=== PATIENT | male | born 1955 | race Two or more races ===

== ENCOUNTER 2023-08-10 12:19 | Inpatient (IN) | payer MEDICARE, MEDICAID ==
[~2023-08-10] VITALS: Ht 167.6 cm; Wt 83.3 kg
[2023-08-10 12:44] VITALS: PULSE 91; RESP 17; O2SAT 95
[2023-08-10 13:37] LABS: Basophils # (auto) 0.1 10 ^3/uL (0-0.2); Basophils % (auto) 1.3 % (0.0-2.0); Eosinophils # (auto) 0.1 10 ^3/uL (0-0.8); Eosinophils % (auto) 0.9 % (0.0-7.0); Hematocrit 43.7 % (41.0-53.0); Hemoglobin 14.8 g/dL (13.5-17.5); Lymphocytes # (auto) 1.2 10 ^3/uL (0.4-5.4); Lymphocytes % (auto) 19.4 % (10.0-50.0); Mean Corpuscular Hemoglobin 28.1 pg (28.0-32.0); Mean Corpuscular Hgb Conc. 33.9 g/dL (32.0-36.0); Mean Corpuscular Volume 82.9 fL (80.0-100.0); Monocytes # (auto) 0.3 10 ^3/uL (0-1.3); Monocytes % (auto) 4.6 % (0.0-12.0); Neutrophils # (auto) 4.6 10 ^3/uL (1.6-8.6); Neutrophils % (auto) 73.8 % (37.0-80.0); Nucleated Red Blood Cells % 0.1 %; Red Blood Cells 5.27 10^6/uL (4.5-5.90); Red Cell Distribution Width 14.7 % (11.8-14.3); White Blood Cell 6.2 10^3/uL (4.4-10.8)
[2023-08-10 13:52] LABS: Alanine Aminotransferase 18 U/L (7-40); Albumin 4.2 g/dL (3.2-4.8); Alkaline Phosphatase 101 U/L (46-116); Anion Gap 7 (5-15); Aspartate Aminotransferase 13 U/L (13-40); BUN/Creatinine Ratio 18.3 (10.0-20.0); Bilirubin, Total 0.5 mg/dL (0.2-1.0); Blood Urea Nitrogen 13 mg/dL (9-23); Calcium 9.6 mg/dL (8.5-10.1); Carbon Dioxide 28 mmol/L (20-30); Chloride 105 mmol/L (98-107); Glucose 171 mg/dL (74-106); Potassium 4.8 mmol/L (3.5-5.1); Sodium 140 mmol/L (136-145); Total Protein 6.8 g/dL (5.7-8.2)
[2023-08-10 14:01] LABS: CRP High Sensitivity 8.97 mg/dL (<1.0)
[2023-08-10 14:23] LABS: Erythrocyte Sedimentation Rate 72 mm/hr (0-20)
[2023-08-10] MEDS: IBUPROFEN 400 MG TAB PO ONE (15:18)
[2023-08-10] MEDS: VANCOMYCIN 1GM/200ML 200 ML IV ONE (15:52)
[2023-08-10] MEDS: PIPERACILLIN-TAZO 4.5GM 100 ML IV ONE (16:59)
[2023-08-10] MEDS ORDERED: ONDANSETRON HCL 4 MG/2 ML VIAL IV PRN (17:15)
[2023-08-10] MEDS ORDERED: MORPHINE SULFATE INJ 2 MG/ml SYRG IV PRN (17:15)
[2023-08-10] MEDS ORDERED: hydrALAZINE HCL 20 MG/ML VL IV PRN (17:15)
[2023-08-10] MEDS ORDERED: ACETAMINOPHEN 325 MG TAB PO PRN (17:15)
[2023-08-10] MEDS ORDERED: HYDROcodone-ACET 5/325MG TAB PO PRN (17:15)
[2023-08-10] MEDS ORDERED: VANCOMYCIN PER PHARMACY 0 MG IV SCH (17:15)
[2023-08-10 18:23] LABS: Triglycerides 140 mg/dL (< 150)
[2023-08-10 18:24] LABS: LDL Cholesterol 131 mg/dL (< 100)
[2023-08-10 18:25] LABS: Cholesterol 175 mg/dL (< 200); HDL Cholesterol 29 mg/dL (40-59)
[2023-08-10] MEDS: SODIUM CHLORIDE 0.9% 1,000 ML IV SCH (18:34)
[2023-08-10 20:00] VITALS: PULSE 83; RESP 16
[2023-08-10 21:00] VITALS: BP 154/76; PULSE 83; RESP 20; TEMP 97.9; O2SAT 91
[2023-08-10] MEDS: PIPERACILLIN-TAZOB 3.375GM 100 ML IV SCH (21:48)
[2023-08-11] VITALS (8 sets, daily range): BP systolic 115–138; BP diastolic 68–76; PULSE 70–88; RESP 16–20; TEMP 97.4–98.4; O2SAT 96–100
[2023-08-11] MEDS: VANCOMYCIN 1GM/200ML 200 ML IV SCH (03:43)
[2023-08-11 06:30] LABS: Basophils # (auto) 0 10 ^3/uL (0-0.2); Basophils % (auto) 0.7 % (0.0-2.0); Eosinophils # (auto) 0.1 10 ^3/uL (0-0.8); Eosinophils % (auto) 2.3 % (0.0-7.0); Hematocrit 39.6 % (41.0-53.0); Hemoglobin 13.4 g/dL (13.5-17.5); Lymphocytes # (auto) 1.3 10 ^3/uL (0.4-5.4); Lymphocytes % (auto) 25.2 % (10.0-50.0); Mean Corpuscular Hemoglobin 27.9 pg (28.0-32.0); Mean Corpuscular Hgb Conc. 33.9 g/dL (32.0-36.0); Mean Corpuscular Volume 82.4 fL (80.0-100.0); Monocytes # (auto) 0.3 10 ^3/uL (0-1.3); Monocytes % (auto) 5.7 % (0.0-12.0); Neutrophils # (auto) 3.4 10 ^3/uL (1.6-8.6); Neutrophils % (auto) 66.1 % (37.0-80.0); Nucleated Red Blood Cells % 0.1 %; Red Blood Cells 4.81 10^6/uL (4.5-5.90); Red Cell Distribution Width 14.4 % (11.8-14.3); White Blood Cell 5.2 10^3/uL (4.4-10.8)
[2023-08-11 06:38] LABS: Alanine Aminotransferase 16 U/L (7-40); Alkaline Phosphatase 85 U/L (46-116); Anion Gap 6 (5-15); BUN/Creatinine Ratio 14.9 (10.0-20.0); Blood Urea Nitrogen 11 mg/dL (9-23); Calcium 9.4 mg/dL (8.7-10.4); Carbon Dioxide 27 mmol/L (20-30); Chloride 102 mmol/L (98-107); Glucose 221 mg/dL (74-106); Potassium 4.5 mmol/L (3.5-5.1)
[2023-08-11 06:39] LABS: Albumin 3.8 g/dL (3.2-4.8); Aspartate Aminotransferase 11 U/L (13-40); Bilirubin, Total 0.5 mg/dL (0.2-1.0); Total Protein 6.6 g/dL (5.7-8.2)
[2023-08-11 06:58] LABS: Sodium 135 mmol/L (136-145)
[2023-08-11] MEDS ORDERED: DEXTROSE (50%) 50ML SYRG IV PRN (08:45)
[2023-08-11] MEDS: AMPICILLIN & SULBACTAM SODIUM 3 GM in SODIUM CHL 0.9% 100 ML IV SCH (08:45)
[2023-08-11] MEDS: ENOXAPARIN SOD 40 MG/0.4 ML SYRINGE SC SCH (09:39)
[2023-08-11] MEDS: LISINOPRIL 5 MG TAB PO SCH (09:39)
[2023-08-11] MEDS: INSULIN LANTUS (GLARGINE) 1 /0.01ml (100units/ml) SC SCH (10:00)
[2023-08-11] MEDS: InsuLIN REG 1unit/0.01ml Soln (100units/ml) SC SCH (11:12)
[2023-08-11] MEDS: ACCU-CHEK COMFORT CURVE STRIP VI SCH (11:12)
[2023-08-11 14:38] LABS: INR 1.05 (0.9-1.15); Partial Thromboplastin Time 25.9 SEC (24.5-34.5); Prothrombin Time 11.1 sec (9.3-11.8)
[2023-08-11] MEDS: ATORVASTATIN 20 MG TAB PO SCH (21:45)
[2023-08-12 05:00] VITALS: BP 138/85; PULSE 84; RESP 18; TEMP 97.9; O2SAT 97
[2023-08-12 07:14] LABS: Basophils # (auto) 0.1 10 ^3/uL (0-0.2); Basophils % (auto) 0.9 % (0.0-2.0); Eosinophils # (auto) 0.1 10 ^3/uL (0-0.8); Hematocrit 41.5 % (41.0-53.0); Hemoglobin 14.2 g/dL (13.5-17.5); Lymphocytes # (auto) 1.5 10 ^3/uL (0.4-5.4); Lymphocytes % (auto) 25.1 % (10.0-50.0); Mean Corpuscular Hemoglobin 28.4 pg (28.0-32.0); Mean Corpuscular Hgb Conc. 34.4 g/dL (32.0-36.0); Mean Corpuscular Volume 82.8 fL (80.0-100.0); Monocytes # (auto) 0.3 10 ^3/uL (0-1.3); Monocytes % (auto) 5.2 % (0.0-12.0); Neutrophils # (auto) 3.9 10 ^3/uL (1.6-8.6); Neutrophils % (auto) 66.8 % (37.0-80.0); Nucleated Red Blood Cells % 0.2 %; Red Blood Cells 5.01 10^6/uL (4.5-5.90); Red Cell Distribution Width 14.5 % (11.8-14.3); White Blood Cell 5.9 10^3/uL (4.4-10.8)
[2023-08-12 07:20] LABS: Anion Gap 7 (5-15); Carbon Dioxide 26 mmol/L (20-30); Chloride 100 mmol/L (98-107); Potassium 4.4 mmol/L (3.5-5.1); Sodium 133 mmol/L (136-145)
[2023-08-12 07:21] LABS: Calcium 9.6 mg/dL (8.5-10.1)
[2023-08-12 07:26] LABS: BUN/Creatinine Ratio 14.6 (10.0-20.0); Blood Urea Nitrogen 12 mg/dL (9-23); Glucose 269 mg/dL (74-106); Magnesium 1.9 mg/dL (1.6-2.6)
[2023-08-12 08:00] VITALS: PULSE 85; RESP 16; O2SAT 97
[2023-08-12] MEDS: IBUPROFEN 400 MG TAB PO PRN (09:21)
[2023-08-12 20:00] VITALS: O2SAT 96
[2023-08-13 07:07] LABS: RPR Non Reactive (Non Reactive)
[2023-08-13 07:08] LABS: Chloride 103 mmol/L (98-107); Potassium 4.7 mmol/L (3.5-5.1); Sodium 136 mmol/L (136-145)
[2023-08-13 07:09] LABS: Anion Gap 3 (5-15); Carbon Dioxide 30 mmol/L (20-30)
[2023-08-13 07:10] LABS: Calcium 9.8 mg/dL (8.5-10.1)
[2023-08-13 07:14] LABS: Glucose 225 mg/dL (74-106)
[2023-08-13 07:15] LABS: BUN/Creatinine Ratio 18.1 (10.0-20.0); Blood Urea Nitrogen 15 mg/dL (9-23)
[2023-08-13 08:00] VITALS: PULSE 90; RESP 22; O2SAT 97
[2023-08-13 09:00] VITALS: BP 145/86; PULSE 90; RESP 22; TEMP 96.9; O2SAT 97
[2023-08-13 12:34] VITALS: BP 121/71; PULSE 86; RESP 20; TEMP 97.6; O2SAT 97
[2023-08-13] MEDS: ACCU-CHEK COMFORT CURVE STRIP VI SCH (17:00)
[2023-08-13] MEDS ORDERED: DEXTROSE (50%) 50ML SYRG IV PRN (17:00)
[2023-08-13 17:01] LABS: Urine Bacteria None Seen /hpf (None Seen); Urine Blood Negative /uL (Negative); Urine Clarity Clear (Clear); Urine Color Yellow (Yellow); Urine Protein, UAD Negative (Negative); Urine Specific Gravity 1.017 (1.001-1.035); Urine Urobilinogen 2 mg/dL (Negative); Urine WBC <1 /hpf (0 - 3); Urine pH 6.5 (5.0-9.0)
[2023-08-13 17:10] LABS: Amphetamine Screen, Urine Neg (NEGATIVE); Barbiturate Scree,Urine Neg (NEGATIVE); Benzodiazephine Screen, Urine Neg (NEGATIVE); Cannabinoid Screen, Urine Neg (NEGATIVE); Cocaine Screen, Urine Neg (NEGATIVE); Opiate Scree,Urine Neg (NEGATIVE); Phencyclidine Screen, Urine Neg (NEGATIVE)
[2023-08-13 17:18] VITALS: BP 107/71; PULSE 84; RESP 18; TEMP 97.6; O2SAT 97
[2023-08-13] MEDS: CYANOCOBALAMIN (B-12) 1000 MCG/1 ML VIAL IM ONE (18:23)
[2023-08-13] MEDS: InsuLIN REG 1unit/0.01ml Soln (100units/ml) SC SCH ×2 (18:24→21:49)
[2023-08-13 20:00] VITALS: PULSE 88; RESP 18; O2SAT 97
[2023-08-13 21:00] VITALS: BP 127/66; PULSE 88; RESP 18; TEMP 97.7; O2SAT 97
[2023-08-14 01:00] VITALS: BP 132/71; PULSE 81; RESP 18; TEMP 97.5; O2SAT 97
[2023-08-14 05:00] VITALS: BP 118/65; PULSE 75; RESP 18; TEMP 97.6; O2SAT 98
[2023-08-14 08:00] VITALS: PULSE 0
[2023-08-14] MEDS ORDERED: QUEtiapine FUMARATE 25 MG TAB PO ONE (08:30)
[2023-08-14] MEDS: CYANOCOBALAMIN 500 MCG TAB PO SCH (10:00)
[2023-08-14] MEDS: HALOPERIDOL LACTATE 5 MG/ML INJ VIAL IM ONE (10:00)
[2023-08-14] MEDS: INSULIN LANTUS (GLARGINE) 1 /0.01ml (100units/ml) SC SCH (10:00)
[2023-08-14 11:20] VITALS: BP 145/86; TEMP 36.4
== END 2023-08-14 13:20 | DRG 603 ==
LOC: ER 12:19 → EDBD 12:19 → OVERFLOW 17:08 → WEST WING 17:59 → EAST 08-14 05:00
PROVIDERS: ADMIT Internal Medicine; ATTEND Internal Medicine
DX: L03.115 Cellulitis of right lower limb (principal); F23 Brief psychotic disorder; E11.9 Type 2 diabetes mellitus without complications; I10 Essential (primary) hypertension; E78.5 Hyperlipidemia, unspecified; E53.8 Deficiency of other specified B group vitamins; F22 Delusional disorders; Z79.899 Other long term (current) drug therapy
CPT/HCPCS: 36415; 73630; 73718; 80048; 80053; 80061; 80307; 80320; 81001; 82140; 82607; 82962; 83036; 83605; 83735; 84443; 85025; 85610; 85652; 85730; 86141; 86592; 87040; 87081; 93970; 96365; 96367; G0378; J1815; J2543